=== PATIENT | male | born 1965 | race African-American/Black ===

== ENCOUNTER 2018-11-28 21:00 | Emergency (ER) | payer BC ==
[2018-11-28 21:16] VITALS: BP 133/85; PULSE 75; TEMP 97.7; BMI 42.2
[2018-11-28] MEDS ORDERED: IBUPROFEN 600 MG TABLET (FP) PO ONE ×2 (21:31→21:35)
--- NOTE | 2018-11-28 21:32 | PDOC ---
History of Present Illness - General Chief Complaint: Pain, Acute Stated Complaint: RT FLANK/LEG PAIN Time Seen by Provider: 11/28/18 21:19 - History of Present Illness Initial Comments: This 53-year-old man with a history of HTN, bilateral kidney stones, colon cancer (2014) presents with a few day history of right-sided flank pain radiating to right lower quadrant of abdomen and right sacroiliac area. 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 He denies pain/numbness/weakness of the right leg. No history of dysuria/urinary frequency/urgency or hematuria. No nausea/vomiting/fever/chills. Past History - Past Medical History Allergies/Adverse Reactions: Allergies Allergy/AdvReac Type Severity Reaction Status Date / Time hydrochlorothiazide Allergy Severe Swelling Verified 08/14/16 07:10 lisinopril Allergy Severe Swelling Verified 08/14/16 07:10 Home Medications: Ambulatory Orders Loratadine 10 mg PO DAILY PRN tablet 12/26/16 Famotidine [Pepcid] 20 mg PO DAILY 11/28/18 Meloxicam 7.5 mg PO DAILY PRN #20 tablet 11/29/18 Meloxicam 7.5 mg PO DAILY PRN #20 tablet 11/29/18 Anemia: No Asthma: No Cancer: Yes (Colon CA, surgery last April, no radiation or Chemo) Cardiac Disorders: No CVA: No COPD: No CHF: No Dementia: No Diabetes: No GI Disorders: Yes (COLON CA 2014) Disorders: Yes (KIDNEY STONES) HTN: Yes Hypercholesterolemia: No Kidney Stones: Yes (BILATERAL) Liver Disease: No Seizures: No Thyroid Disease: No Other medical history: PSIATICA - Surgical History Abdominal Surgery: No Appendectomy: No Cardiac Surgery: No Cholecystectomy: No Lung Surgery: No Neurologic Surgery: No Orthopedic Surgery: Yes (LEFT CARPAL TUNNEL) - Suicide/Smoking/Psychosocial Hx Smoking History: Never smoked Have you smoked in the past 12 months: Yes Number of Cigarettes Smoked Daily: 0 Cigars Per Day: 1 'Breaking Loose' booklet given: 08/13/16 Hx Alcohol Use: Yes (social) Drug/Substance Use Hx: No Substance Use Type: None Hx Substance Use Treatment: No Review of Systems - Review of Systems Able to Perform ROS?: Yes Comments:: 12 point review of systems is negative except for what is noted in the history of present illness *Physical Exam - Vital Signs Last Vital Signs Temp Pulse Resp BP Pulse Ox 97.7 F 75 18 133/85 100 11/28/18 21:07 11/28/18 21:07 11/28/18 21:07 11/28/18 21:07 11/28/18 21:07 - Physical Exam Comments: GENERAL: Adult male, in moderate distress, secondary to right flank/lower back pain HEAD: Normal with no signs of trauma. EYES: PERRLA, EOMI, sclera anicteric, conjunctiva clear. ENT: Ears normal, nares patent, oropharynx clear without exudates. Moist mucous membranes. NECK: Normal range of motion, supple without lymphadenopathy, JVD, or masses. LUNGS: Breath sounds equal, clear to auscultation bilaterally. No wheezes, and no crackles. HEART:Regular rate and rhythm, normal S1 and S2 without murmur, rub or gallop. ABDOMEN:.normal bowel sounds No guarding,tenderness or rebound.No masses No distention. EXTREMITIES: Normal range of motion, no edema. No clubbing or cyanosis. No erythema, or tenderness. NEUROLOGICAL: Cranial nerves II through XII grossly intact. Normal speech. No focal neurological deficits. MUSCULOSKELETAL: Back mild tenderness to palpation in right flank/right lower back area, no CVA tenderness SKIN: Warm, Dry, normal turgor, no rashes or lesions noted. Moderate Sedation - Procedure Monitoring Vital Signs: Procedure Monitoring Vital Signs Temperature 97.7 F 11/28/18 21:07 Pulse Rate 75 11/28/18 21:07 Respiratory Rate 18 11/28/18 21:07 Blood Pressure 133/85 11/28/18 21:07 O2 Sat by Pulse Oximetry (%) 100 11/28/18 21:07 ED Treatment Course - ADDITIONAL ORDERS Additional order review: Laboratory Results 11/28/18 21:16 Urine Color Not Urine Appearance Not Progress Note - Progress Note Progress Note: Because of patient's previous history of bilateral renal calculi and equivocal exam, renal stone protocol CT performed: There was a 3 mm nonobstructing right renal lower pole calculus; no hydronephrosis/hydroureter noted. no other definite urinary tract calculus was visualized. Note was made of the mildly hyperdense liver. Since it appears that renal calculi are ruled out, clinical presentation most consistent with musculoskeletal related pain such as lumbosacral strain/sprain. Toradol 60 mg IM administered. Patient is followed by Dr. Rob of orthopedics staff. He should plan to follow up with Dr. Rob in the coming week. Meanwhile, he refrain from any strenuous physical activity involving lower torso such as, pushing/pulling/lifting heavy objects. Patient has been prescribed meloxicam 7.5 mg daily in the past; he found this effective. New prescription for this medication will be sent to his pharmacy. *DC/Admit/Observation/Transfer Diagnosis at time of Disposition: Low back pain Qualifiers: Chronicity: acute Back pain laterality: right Sciatica presence: without sciatica Qualified Code(s): M54.5 - Low back pain - Discharge Dispostion Disposition: HOME Condition at time of disposition: Stable - Prescriptions Prescriptions: Meloxicam 7.5 mg PO DAILY PRN #20 tablet PRN Reason: Pain Meloxicam 7.5 mg PO DAILY PRN #20 tablet PRN Reason: Pain - Referrals Referrals: Sean Shin MD [Primary Care Provider] - Leobardo Rob MD [Staff Physician] - - Patient Instructions Printed Discharge Instructions: DI for Low Back Pain Additional Instructions: avoid strenuous activity involving pushing/pulling/lifting heavy objects meloxicam 7.5 mg daily; take with food followup with Dr Rob on Saturday, 12/02 as scheduled return to ER if you have severe, persistent pain - Post Discharge Activity
[2018-11-29] MEDS ORDERED: KETOROLAC TROMETHAMINE 60 MG/2 ML VIAL IM ONE (00:29)
[2018-11-29] MEDS ORDERED: KETOROLAC TROMETHAMINE 60 MG/2 ML VIAL ONE (00:31)
== END 2018-11-29 00:52 | disposition home or self-care (01) ==
LOC: FER 21:00
PROC: 3E0233Z Introduction of Anti-inflammatory into Muscle, Percutaneous Approach (ICD-10-PCS; principal; 2018-11-28)
DX: M54.5 Low back pain (principal); I10 Essential (primary) hypertension; Z85.038 Personal history of other malignant neoplasm of large intestine; R10.31 Right lower quadrant pain
CPT/HCPCS: 74176-TC; 99282-25

== ENCOUNTER 2019-06-04 08:25 | Day surgery (SDC) | payer BC ==
[2019-06-03 13:23] VITALS: BMI 29.7
[2019-06-04] MEDS ORDERED: PROPOFOL 20 ML ONE ×2 (09:13)
[2019-06-04 09:42] VITALS: TEMP 98.3
[2019-06-04 10:33] VITALS: BP 112/74; PULSE 61
--- NOTE | 2019-06-08 14:26 | PATH ---
Surgical Pathology Report Patient Name: NUPUR ANGEL [facility]. Rec. #: [id number] /Age/Gender: 1965 (Age: 53) / M Account: [id number] Location: [facility] Taken: 06/04/2019 Received: 06/04/2019 Reported: 06/08/2019 Physicians: Fausto Rodarte M.D. Specimen(s) Received A: POLYPECTOMY PROXIMAL RIGHT COLON B: POLYPECTOMY MID RIGHT COLON C: POLYP HEPATIC FLEXURE Clinical History History colon cancer Postoperative diagnoses: Colon polyps, surgical changes Final Diagnosis A. PROXIMAL RIGHT COLON, HOT SNARE POLYPECTOMY: TUBULAR ADENOMA. B. MID RIGHT COLON, HOT SNARE POLYPECTOMY: TUBULAR ADENOMA WITH FOCI OF HIGH-GRADE DYSPLASIA. C. HEPATIC FLEXURE, POLYP, BIOPSY: HYPERPLASTIC POLYP. Electronically Signed Carolyne Stuart M.D. Gross Description A. Received in formalin, labeled "polypectomy proximal right colon" are multiple betancourt, irregular portions of soft tissue ranging in size from 0.1-0.6 cm, having an aggregate of 1.2 x 1 x0.2 cm. The specimens are submitted in toto in one cassette. B. Received in formalin, labeled " polypectomy mid right colon " is a betancourt, irregular portion of soft tissue measuring 1 cm. in greatest dimension. The specimen is bisected and entirely submitted in one cassette. C. Received in formalin, labeled "polyp hepatic flexure" is a betancourt, irregular portion of soft tissue measuring 0.3 cm. in greatest dimension. The specimen is submitted in toto in one cassette. MLOlafZ/06/05/2019 shirin/06/05/2019
== END 2019-06-04 10:10 | disposition home or self-care (01) ==
LOC: FASU-ENDO 08:25
PROVIDERS: ATTEND Internal Medicine Gastroenterology
PROC: 0DBL8ZX Excision of Transverse Colon, Via Natural or Artificial Opening Endoscopic, Diagnostic (ICD-10-PCS; 2019-06-04)
PROC: 0DBK8ZX Excision of Ascending Colon, Via Natural or Artificial Opening Endoscopic, Diagnostic (ICD-10-PCS; principal; 2019-06-04 09:15)
DX: Z85.038 Personal history of other malignant neoplasm of large intestine (principal); D12.2 Benign neoplasm of ascending colon; D12.3 Benign neoplasm of transverse colon; Z98.0 Intestinal bypass and anastomosis status
CPT/HCPCS: 88305-TC

== ENCOUNTER 2020-08-24 08:11 | Day surgery (SDC) | payer BC ==
[2020-08-23 15:31] VITALS: BMI 29.7
[2020-08-24] MEDS ORDERED: LIDOCAINE HCL/PF 2% SDV 5ML VIAL ONE (08:47)
[2020-08-24] MEDS ORDERED: PROPOFOL 20 ML ONE ×3 (08:48)
[2020-08-24 10:00] VITALS: TEMP 97.9
[2020-08-24 10:53] VITALS: BP 121/87; PULSE 64
== END 2020-08-24 10:35 | disposition home or self-care (01) ==
LOC: FASU-ENDO 08:11
PROVIDERS: ATTEND Internal Medicine Gastroenterology
PROC: 0DBN8ZX Excision of Sigmoid Colon, Via Natural or Artificial Opening Endoscopic, Diagnostic (ICD-10-PCS; 2020-08-24)
PROC: 0DB98ZX Excision of Duodenum, Via Natural or Artificial Opening Endoscopic, Diagnostic (ICD-10-PCS; 2020-08-24)
PROC: 0DB68ZX Excision of Stomach, Via Natural or Artificial Opening Endoscopic, Diagnostic (ICD-10-PCS; 2020-08-24)
PROC: 0DBH8ZX Excision of Cecum, Via Natural or Artificial Opening Endoscopic, Diagnostic (ICD-10-PCS; principal; 2020-08-24 08:53)
DX: Z85.038 Personal history of other malignant neoplasm of large intestine (principal); D12.0 Benign neoplasm of cecum; D12.5 Benign neoplasm of sigmoid colon; D12.7 Benign neoplasm of rectosigmoid junction; K29.50 Unspecified chronic gastritis without bleeding; Z98.0 Intestinal bypass and anastomosis status
CPT/HCPCS: 88305-TC; 88342-TC

== ENCOUNTER 2021-08-09 08:20 | Day surgery (SDC) | payer BC ==
[2021-08-07 15:14] VITALS: BMI 29.7
[2021-08-09] MEDS ORDERED: PROPOFOL 20 ML ONE (09:42)
[2021-08-09 10:11] VITALS: TEMP 98.1
[2021-08-09 10:13] VITALS: BP 130/78; PULSE 60
== END 2021-08-09 10:45 | disposition home or self-care (01) ==
LOC: FASU-ENDO 08:20
PROVIDERS: ATTEND Internal Medicine Gastroenterology
PROC: 0DBK8ZX Excision of Ascending Colon, Via Natural or Artificial Opening Endoscopic, Diagnostic (ICD-10-PCS; 2021-08-09)
PROC: 0DBK8ZX Excision of Ascending Colon, Via Natural or Artificial Opening Endoscopic, Diagnostic (ICD-10-PCS; principal; 2021-08-09 09:36)
DX: Z85.038 Personal history of other malignant neoplasm of large intestine (principal); Z86.010 Personal history of colon polyps; D12.2 Benign neoplasm of ascending colon; Z98.0 Intestinal bypass and anastomosis status

== ENCOUNTER 2022-10-10 07:54 | Day surgery (SDC) | payer BC ==
[2022-10-08 15:58] VITALS: BMI 29.7
[2022-10-10] MEDS ORDERED: PROPOFOL 80 ML ONE (08:07)
[2022-10-10 08:17] VITALS: RESP 18
[2022-10-10 09:28] VITALS: TEMP 98
[2022-10-10 09:42] VITALS: BP 130/75; PULSE 68
== END 2022-10-10 10:15 | disposition home or self-care (01) ==
LOC: FASU-ENDO 07:54
PROVIDERS: ATTEND Internal Medicine Gastroenterology
PROC: 0DBN8ZX Excision of Sigmoid Colon, Via Natural or Artificial Opening Endoscopic, Diagnostic (ICD-10-PCS; principal; 2022-10-10 08:59)
DX: Z12.11 Encounter for screening for malignant neoplasm of colon (principal); D12.5 Benign neoplasm of sigmoid colon; Z85.038 Personal history of other malignant neoplasm of large intestine; Z98.0 Intestinal bypass and anastomosis status
CPT/HCPCS: 88305-TC

== ENCOUNTER 2024-01-06 07:48 | Day surgery (SDC) | payer BC ==
[2023-12-23 13:24] VITALS: BMI 29.7
[2024-01-06] MEDS ORDERED: LIDOCAINE HCL/PF 2% SDV 5ML VIAL ONE (07:52)
[2024-01-06] MEDS ORDERED: PROPOFOL 160 ML ONE (07:53)
[2024-01-06 09:51] VITALS: TEMP 97.7
[2024-01-06 09:52] VITALS: BP 106/65; PULSE 59; RESP 19
== END 2024-01-06 10:15 | disposition home or self-care (01) ==
LOC: FASU-ENDO 07:48
PROVIDERS: ATTEND Internal Medicine Gastroenterology
PROC: 0DBN8ZX Excision of Sigmoid Colon, Via Natural or Artificial Opening Endoscopic, Diagnostic (ICD-10-PCS; principal; 2024-01-06 09:14)
DX: Z12.11 Encounter for screening for malignant neoplasm of colon (principal); D12.5 Benign neoplasm of sigmoid colon; Z85.038 Personal history of other malignant neoplasm of large intestine; Z86.010 Personal history of colon polyps; Z98.0 Intestinal bypass and anastomosis status
CPT/HCPCS: 88305-TC